=== PATIENT | female | born 1970 | race Caucasian/White ===

== ENCOUNTER 2017-09-17 14:24 | Emergency (ER) | payer MEDICAID ==
[2017-11-10] MEDS ORDERED: BUPROPION XL300 MG PO (17:16)
[2017-11-10] MEDS ORDERED: MEPERIDINE HCL50 MG PO (17:17)
[2017-11-10] MEDS ORDERED: ONDANSETRON ODT 8MG (17:32)
[2017-11-12 07:01] VITALS: BMI 28.4
== END 2017-09-17 17:54 | disposition home or self-care (01) ==
LOC: D.ER 14:24
DX: S52.102A Unspecified fracture of upper end of left radius, initial encounter for closed fracture (principal); V80.010A Animal-rider injured by fall from or being thrown from horse in noncollision accident, initial encounter; Y93.89 Activity, other specified; Y92.029 Unspecified place in mobile home as the place of occurrence of the external cause; F17.200 Nicotine dependence, unspecified, uncomplicated

== ENCOUNTER → 2017-10-29 15:58 | Outpatient (CLI) | payer MEDICAID ==
[~2017-10-29 15:58] MED LIST: BUPROPION XL300 MG PO; HYDROCODONE-APA1 TAB PO; MEPERIDINE HCL50 MG PO; ONDANSETRON ODT 8MG; PROVENTIL HFA6.7 GM INH
[2017-11-12 07:01] VITALS: BMI 28.4
== END | disposition home or self-care (01) ==
LOC: D.CT 10-28 15:30
DX: M25.521 Pain in right elbow (principal)

== ENCOUNTER 2017-11-12 06:03 | Day surgery (SDC) | payer MEDICAID ==
[~2017-11-12] VITALS: Ht 157.5 cm; Wt 70.3 kg
[~2017-11-12 06:03] MED LIST changes: -HYDROCODONE-APA1 TAB PO; -PROVENTIL HFA6.7 GM INH
[2017-11-12] MEDS ORDERED: PROVENTIL HFA6.7 GM INH (06:56)
[2017-11-12 07:01] VITALS: BP 105/69; Ht 157.5 cm; Wt 70.3 kg
[2017-11-12 07:08] LABS: HEMATOCRIT 31.6 % (36.0-48.0); HEMOGLOBIN 9.3 g/dL (12-16); MCHC 29.4 g/dL (31.0-37.0); MCV 68.1 fL (80.0-100.0); MEAN PLATELET VOLUME 8.9 fL (7.4-10.4); RBC 4.64 10x6/uL (4.00-5.40); RDW 17.6 % (11.5-14.5)
[2017-11-12] MEDS ORDERED: HYDROCODONE-APA1 TAB PO (09:51)
--- NOTE | 2017-11-12 14:06 | OP ---
PATIENT NAME: CLARA MANCUSO MEDICAL RECORD: [id number] :66 LOCATION:[facility] ADMISSION DATE: SURGEON: BRIA HENRY MD DATE OF OPERATION: 11/12/2017 PREOPERATIVE DIAGNOSIS: Comminuted nonhealing right radial head fracture. POSTOPERATIVE DIAGNOSIS: Comminuted nonhealing right radial head fracture. PROCEDURE: Right radial head arthroplasty with removal of loose body. SURGEON: Bria Henry MD ANESTHESIA: General. INTRAOPERATIVE COMPLICATIONS: None. SUMMARY OF PATHOLOGIC FINDINGS: The patient had a nonunion over the medial aspect of the radial head with fragmentation. OPERATIVE SUMMARY IN DETAIL: After obtaining the appropriate preoperative orthopedic consent as well as anesthetic consultation, evaluation and clearance, the patient was brought to the operating room and placed on operating table in supine position. After general laryngeal mask airway was administered, tourniquet was placed about the proximal aspect of the right upper extremity. Right upper extremity was then prepped and draped in routine sterile fashion. The arm was elevated and exsanguinated, tourniquet inflated to 350 mmHg. An incision was made directly over the radial head, taken down to the anconeus fibers, just superior to the anconeus fibers and completely exposed. Sagittal saw was used to cut the radial head off to the appropriate length and all loose bodies were removed at this time. The wound was then irrigated. Serial and sequential broaching was done for a size 5 standard neck and the size 20 head was the most appropriate on trials. The final implant was put together on the back table, tamped into the Long taper and then inserted with a little degree of difficulty. This was then reduced and the patient had the appropriate degree of tension. This was then irrigated and closed, the capsule with #1 Vicryl followed by 2-0 Vicryl and 4-0 Prolene in a running fashion for final closure. Sterile dressings were applied. The patient was placed in a sling. She was awakened and she was taken to the recovery in stable condition. All final needle and sponge counts were correct. TRANSINT:[id number] Voice Confirmation ID: [id number] DOCUMENT ID: [id number] BRIA HENRY MD at 1404 CC: [id number] DICTATION DATE: 11/12/17 0954 HAND PACKER: 11/12/17 1045 [facility] [address] [place] [id number]
--- NOTE | 2017-11-12 14:34 | NUR ---
1125--PT COMPLAINS OF NAUSEA AND DISCOMFORT. ZOFRAN 4MG GIVEN SIVP AND NORCO 10/325MG GIVEN FOR PAIN, PT RATES PAIN 4/10. WILL CONTINUE TO MONITOR. DESIREE ODEN 1215--IV DC'D. DESIREE ODEN 1225--DISCHARGE INSTRUCTIONS GIVEN, PT VERBALIZES UNDERSTANDING. PT OFF UNIT VIA WC. DESIREE ODEN
== END 2017-11-12 12:25 | disposition home or self-care (01) ==
LOC: D.OPS 06:03 → D.PAN 07:30 → D.OPS 07:30
PROVIDERS: Anesthesiology
DX: S52.121K Displaced fracture of head of right radius, subsequent encounter for closed fracture with nonunion (principal); M24.029 Loose body in unspecified elbow; Z01.812 Encounter for preprocedural laboratory examination